=== PATIENT | female | born 1955 | race Caucasian/White ===

== ENCOUNTER → 2018-12-08 17:14 | Outpatient (CLI) | payer MEDICAID ==
[2018-12-08 18:10] LABS: BASOPHILS 0.6 % (0-2); EOSINOPHILS 2.2 % (0-7); HEMATOCRIT 23.6 % (36.0-48.0); HEMOGLOBIN 7.7 g/dL (12-16); IMMATURE GRANULOCYTES 0.6 % (0-5); LYMPHOCYTES 21.7 % (15-50); MCH 28.4 pg (26.0-34.0); MCHC 32.6 g/dL (31.0-37.0); MCV 87.1 fL (80.0-100.0); MEAN PLATELET VOLUME 10.8 fL (7.4-10.4); MONOCYTES 10.4 % (2-11); NEUTROPHILS 64.5 % (40-80); PLATELET COUNT 142 10x3/uL (130-400); RBC 2.71 10x6/uL (4.00-5.40); RDW 20.3 % (11.5-14.5); WBC 3.2 10x3/uL (4.8-10.8)
[2018-12-08 18:33] LABS: INR 2.5 (0.85-1.17); PROTIME 26.3 SECONDS (11.6-15.0)
[2018-12-08 18:41] LABS: ALBUMIN 2.3 g/dL (3.4-5.0); ALKALINE PHOSPHATASE 97 U/L (46-116); ALT (SGPT) 28 U/L (10-68); BILIRUBIN - TOTAL 0.47 mg/dL (0.2-1.3); CALC OSMOLALITY 270 mosm/kg (275-300); CALCIUM 9.6 mg/dL (8.5-10.1); CARBON DIOXIDE 27.2 mmol/L (21.0-32.0); CHLORIDE - SERUM 102 mmol/L (98-107); CREATININE - SERUM 0.7 mg/dL (0.6-1.3); GLUCOSE 91 mg/dL (74-106); POTASSIUM - SERUM 4.3 mmol/L (3.5-5.1); PROTEIN - SERUM 7.6 g/dL (6.4-8.2); SODIUM 136 mmol/L (136-145); UREA NITROGEN 9 mg/dL (7-18); eGFR NON AFRICAN AMERICAN 90 mL/min (90-120)
== END | disposition home or self-care (01) ==
LOC: D.LABREF 17:14
PROVIDERS: ATTEND Family Medicine
DX: J18.9 Pneumonia, unspecified organism (principal)

== ENCOUNTER → 2018-12-15 15:34 | Outpatient (CLI) | payer MEDICAID ==
[2018-12-15 16:15] LABS: INR 3.23 (0.85-1.17); PROTIME 32.2 SECONDS (11.6-15.0)
== END | disposition home or self-care (01) ==
LOC: D.LABREF 15:34
PROVIDERS: ATTEND Family Medicine
DX: R79.1 Abnormal coagulation profile (principal)

== ENCOUNTER → 2018-12-22 20:22 | Outpatient (CLI) | payer MEDICAID ==
[2018-12-22 23:34] LABS: INR 3.12 (0.85-1.17); PROTIME 31.3 SECONDS (11.6-15.0)
== END | disposition home or self-care (01) ==
LOC: D.LABREF 20:22
PROVIDERS: ATTEND Family Medicine
DX: R79.1 Abnormal coagulation profile (principal)

== ENCOUNTER → 2018-12-28 19:02 | Outpatient (CLI) | payer MEDICAID ==
[2018-12-28 19:58] LABS: PROTIME 47.2 SECONDS (11.6-15.0)
[2018-12-28 20:04] LABS: INR 5.23 (0.85-1.17)
== END | disposition home or self-care (01) ==
LOC: D.LABREF 19:02
PROVIDERS: ATTEND Family Medicine
DX: R74.8 Abnormal levels of other serum enzymes (principal); R79.1 Abnormal coagulation profile

== ENCOUNTER → 2018-12-29 21:06 | Outpatient (CLI) | payer MEDICAID ==
[2018-12-29 21:32] LABS: INR 4.74 (0.85-1.17); PROTIME 43.7 SECONDS (11.6-15.0)
== END | disposition home or self-care (01) ==
LOC: D.LABREF 21:06
PROVIDERS: ATTEND Family Medicine
DX: R79.1 Abnormal coagulation profile (principal)

== ENCOUNTER → 2018-12-31 16:43 | Outpatient (CLI) | payer MEDICAID ==
[2018-12-31 16:48] LABS: BASOPHILS 0.3 % (0-2); EOSINOPHILS 4.2 % (0-7); HEMATOCRIT 26.6 % (36.0-48.0); HEMOGLOBIN 8.7 g/dL (12-16); IMMATURE GRANULOCYTES 0.3 % (0-5); LYMPHOCYTES 5.9 % (15-50); MCH 27.5 pg (26.0-34.0); MCHC 32.7 g/dL (31.0-37.0); MCV 84.2 fL (80.0-100.0); MEAN PLATELET VOLUME 8.7 fL (7.4-10.4); MONOCYTES 15.1 % (2-11); NEUTROPHILS 74.2 % (40-80); PLATELET COUNT 488 10x3/uL (130-400); RBC 3.16 10x6/uL (4.00-5.40); RDW 19.4 % (11.5-14.5); WBC 7.8 10x3/uL (4.8-10.8)
[2018-12-31 16:59] LABS: INR 2.99 (0.85-1.17); PROTIME 30.3 SECONDS (11.6-15.0)
== END | disposition home or self-care (01) ==
LOC: D.LABREF 16:43
PROVIDERS: ATTEND Family Medicine
DX: R79.1 Abnormal coagulation profile (principal); R74.8 Abnormal levels of other serum enzymes

== ENCOUNTER → 2019-01-01 16:04 | Outpatient (CLI) | payer MEDICAID | END | disposition home or self-care (01) | LOC: D.LABREF 16:04 | PROVIDERS: ATTEND Family Medicine | DX: R19.5 Other fecal abnormalities (principal); K92.2 Gastrointestinal hemorrhage, unspecified ==

== ENCOUNTER → 2019-01-05 16:25 | Outpatient (CLI) | payer MEDICAID | END | disposition home or self-care (01) | LOC: D.LABREF 16:25 | DX: R79.1 Abnormal coagulation profile (principal) ==

== ENCOUNTER → 2019-01-12 13:37 | Outpatient (CLI) | payer MEDICAID ==
[2019-01-12 14:42] LABS: BASOPHILS 0.2 % (0-2); EOSINOPHILS 1.9 % (0-7); HEMATOCRIT 28.2 % (36.0-48.0); HEMOGLOBIN 9.1 g/dL (12-16); IMMATURE GRANULOCYTES 0.2 % (0-5); LYMPHOCYTES 10.9 % (15-50); MCHC 32.3 g/dL (31.0-37.0); MCV 83.7 fL (80.0-100.0); MONOCYTES 12.5 % (2-11); NEUTROPHILS 74.3 % (40-80); PLATELET COUNT 454 10x3/uL (130-400); RBC 3.37 10x6/uL (4.00-5.40); RDW 20.3 % (11.5-14.5); WBC 6.2 10x3/uL (4.8-10.8)
[2019-01-12 14:51] LABS: INR 2.12 (0.85-1.17); PROTIME 23.1 SECONDS (11.6-15.0)
== END | disposition home or self-care (01) ==
LOC: D.LABREF 13:37
PROVIDERS: ATTEND Family Medicine
DX: R79.1 Abnormal coagulation profile (principal)

== ENCOUNTER → 2019-01-20 20:46 | Outpatient (CLI) | payer MEDICAID ==
[2019-01-20 22:43] LABS: HEMATOCRIT 36.4 % (36.0-48.0); HEMOGLOBIN 10.9 g/dL (12-16); MCH 28.3 pg (26.0-34.0); MCHC 29.9 g/dL (31.0-37.0); MCV 94.5 fL (80.0-100.0); MEAN PLATELET VOLUME 12.4 fL (7.4-10.4); RBC 3.85 10x6/uL (4.00-5.40); RDW 22.3 % (11.5-14.5); WBC 17.3 10x3/uL (4.8-10.8)
[2019-01-20 22:51] LABS: PLATELET COUNT 313 10x3/uL (130-400)
[2019-01-20 23:00] LABS: INR 1.67 (0.85-1.17); PROTIME 19.1 SECONDS (11.6-15.0)
[2019-01-21 00:13] LABS: BASOPHILS 2 % (0-2); EOSINOPHILS 8 % (0-7); LYMPHOCYTES 26 % (15-50); MONOCYTES 2 % (2-11); NEUTROPHILS 61 % (40-80); PLATELET ESTIMATE INCREASED; PLATELET MORPHOLOGY PLT CLUMPS PRESENT
== END | disposition home or self-care (01) ==
LOC: D.LABREF 20:46
PROVIDERS: ATTEND Family Medicine
DX: R79.1 Abnormal coagulation profile (principal)

== ENCOUNTER → 2019-01-26 19:05 | Outpatient (CLI) | payer MEDICAID ==
[2019-01-26 19:44] LABS: BASOPHILS 0 % (0-2); EOSINOPHILS 3.5 % (0-7); HEMATOCRIT 29.6 % (36.0-48.0); HEMOGLOBIN 9.5 g/dL (12-16); LYMPHOCYTES 9.5 % (15-50); MCHC 32.1 g/dL (31.0-37.0); MCV 84.1 fL (80.0-100.0); MEAN PLATELET VOLUME 9.3 fL (7.4-10.4); MONOCYTES 15.8 % (2-11); NEUTROPHILS 71.2 % (40-80); PLATELET COUNT 267 10x3/uL (130-400); RBC 3.52 10x6/uL (4.00-5.40); RDW 19.1 % (11.5-14.5); WBC 4.3 10x3/uL (4.8-10.8)
[2019-01-26 20:17] LABS: INR 1.44 (0.85-1.17)
== END | disposition home or self-care (01) ==
LOC: D.LABREF 19:05
PROVIDERS: ATTEND Family Medicine
DX: Z00.00 Encounter for general adult medical examination without abnormal findings (principal)

== ENCOUNTER → 2019-02-03 15:20 | Outpatient (CLI) | payer MEDICAID ==
[2019-02-03 16:17] LABS: BASOPHILS 0.3 % (0-2); EOSINOPHILS 4.2 % (0-7); HEMATOCRIT 29.9 % (36.0-48.0); HEMOGLOBIN 9.8 g/dL (12-16); LYMPHOCYTES 19.2 % (15-50); MCH 26.9 pg (26.0-34.0); MCHC 32.8 g/dL (31.0-37.0); MCV 82.1 fL (80.0-100.0); MEAN PLATELET VOLUME 9.3 fL (7.4-10.4); MONOCYTES 12.5 % (2-11); NEUTROPHILS 63.8 % (40-80); PLATELET COUNT 266 10x3/uL (130-400); RBC 3.64 10x6/uL (4.00-5.40); RDW 18.6 % (11.5-14.5); WBC 3.6 10x3/uL (4.8-10.8)
[2019-02-03 16:54] LABS: INR 1.27 (0.85-1.17); PROTIME 15.4 SECONDS (11.6-15.0)
== END | disposition home or self-care (01) ==
LOC: D.LABREF 15:20
PROVIDERS: ATTEND Family Medicine
DX: R79.1 Abnormal coagulation profile (principal)

== ENCOUNTER → 2019-02-09 18:46 | Outpatient (CLI) | payer MEDICAID ==
[2019-02-09 19:04] LABS: BASOPHILS 0.2 % (0-2); EOSINOPHILS 2.6 % (0-7); HEMATOCRIT 30.7 % (36.0-48.0); HEMOGLOBIN 10.2 g/dL (12-16); IMMATURE GRANULOCYTES 0.2 % (0-5); LYMPHOCYTES 24.9 % (15-50); MCH 26.6 pg (26.0-34.0); MCHC 33.2 g/dL (31.0-37.0); MCV 80.2 fL (80.0-100.0); MEAN PLATELET VOLUME 9.9 fL (7.4-10.4); MONOCYTES 11.9 % (2-11); NEUTROPHILS 60.2 % (40-80); PLATELET COUNT 289 10x3/uL (130-400); RBC 3.83 10x6/uL (4.00-5.40); RDW 18.3 % (11.5-14.5); WBC 4.2 10x3/uL (4.8-10.8)
[2019-02-09 19:13] LABS: INR 1.55 (0.85-1.17)
== END | disposition home or self-care (01) ==
LOC: D.LABREF 18:46
PROVIDERS: ATTEND Family Medicine
DX: R79.1 Abnormal coagulation profile (principal)

== ENCOUNTER → 2019-02-16 22:00 | Outpatient (CLI) | payer MEDICAID ==
[2019-02-16 22:16] LABS: BASOPHILS 0 % (0-2); EOSINOPHILS 2.5 % (0-7); HEMOGLOBIN 10.3 g/dL (12-16); LYMPHOCYTES 17.8 % (15-50); MCH 26.8 pg (26.0-34.0); MCHC 32.2 g/dL (31.0-37.0); MCV 83.3 fL (80.0-100.0); MEAN PLATELET VOLUME 9.2 fL (7.4-10.4); MONOCYTES 14.6 % (2-11); NEUTROPHILS 65.1 % (40-80); PLATELET COUNT 310 10x3/uL (130-400); RBC 3.84 10x6/uL (4.00-5.40); RDW 18.2 % (11.5-14.5); WBC 4.1 10x3/uL (4.8-10.8)
[2019-02-16 22:27] LABS: INR 1.41 (0.85-1.17); PROTIME 16.6 SECONDS (11.6-15.0)
== END | disposition home or self-care (01) ==
LOC: D.LABREF 22:00
PROVIDERS: ATTEND Family Medicine
DX: R79.1 Abnormal coagulation profile (principal)

== ENCOUNTER → 2019-02-23 14:48 | Outpatient (CLI) | payer MEDICAID ==
[2019-02-23 15:11] LABS: INR 1.42 (0.85-1.17); PROTIME 16.8 SECONDS (11.6-15.0)
== END | disposition home or self-care (01) ==
LOC: D.LABREF 14:48
PROVIDERS: ATTEND Family Medicine
DX: I48.2 Chronic atrial fibrillation (principal); I11.0 Hypertensive heart disease with heart failure; C34.2 Malignant neoplasm of middle lobe, bronchus or lung; D64.9 Anemia, unspecified

== ENCOUNTER → 2019-03-02 12:58 | Outpatient (CLI) | payer MEDICAID ==
[2019-03-02 15:02] LABS: INR 1.48 (0.85-1.17); PROTIME 17.3 SECONDS (11.6-15.0)
== END | disposition home or self-care (01) ==
LOC: D.LABREF 12:58
PROVIDERS: ATTEND Family Medicine
DX: Z79.01 Long term (current) use of anticoagulants (principal)

== ENCOUNTER → 2019-03-09 13:00 | Outpatient (CLI) | payer MEDICAID ==
[2019-03-09 13:45] LABS: INR 1.43 (0.85-1.17); PROTIME 16.9 SECONDS (11.6-15.0)
== END | disposition home or self-care (01) ==
LOC: D.LABREF 13:00
PROVIDERS: ATTEND Family Medicine
DX: Z79.01 Long term (current) use of anticoagulants (principal)

== ENCOUNTER → 2019-03-17 13:05 | Outpatient (CLI) | payer MEDICAID ==
[2019-03-17 15:26] LABS: INR 1.46 (0.85-1.17); PROTIME 17.2 SECONDS (11.6-15.0)
== END | disposition home or self-care (01) ==
LOC: D.LABREF 13:05
PROVIDERS: ATTEND Family Medicine
DX: I48.2 Chronic atrial fibrillation (principal); I10 Essential (primary) hypertension; C34.2 Malignant neoplasm of middle lobe, bronchus or lung; D64.9 Anemia, unspecified

== ENCOUNTER → 2019-03-25 12:32 | Outpatient (CLI) | payer MEDICAID ==
[2019-03-25 13:10] LABS: INR 1.74 (0.85-1.17); PROTIME 19.7 SECONDS (11.6-15.0)
== END | disposition home or self-care (01) ==
LOC: D.LABREF 12:32
PROVIDERS: ATTEND Family Medicine
DX: Z79.01 Long term (current) use of anticoagulants (principal)

== ENCOUNTER → 2019-06-23 19:59 | Outpatient (CLI) | payer MEDICAID ==
[2019-06-23 20:10] LABS: INR 3.1 (0.85-1.17); PROTIME 31.2 SECONDS (11.6-15.0)
== END | disposition home or self-care (01) ==
LOC: D.LABREF 19:59
PROVIDERS: ATTEND Internal Medicine Cardiovascular Disease
DX: Z79.01 Long term (current) use of anticoagulants (principal)